=== PATIENT | female | born 1960 | race Caucasian/White ===

== ENCOUNTER 2017-11-13 05:22 | Inpatient (IN) ==
[2017-11-13 05:57] VITALS: BMI 34.0
[2017-11-13] MEDS ORDERED: LIDOCAINE 1% (10mg/ml) 2mL INJ PF SDV ID ONE (06:00)
[2017-11-13] MEDS ORDERED: FAMOTIDINE PB 20 MG/50 ML BAG IV ONE (06:00)
[2017-11-13] MEDS ORDERED: TRANEXAMIC ACID 1,000 MG in NS 100 ML IV ONE ×2 (06:00→07:00)
[2017-11-13] MEDS ORDERED: DEXAMETHASONE 4 MG/ML INJECTION IVP ONE (06:00)
[2017-11-13] MEDS ORDERED: METOCLOPRAMIDE 10mg/2ml INJECTION IVP ONE (06:00)
[2017-11-13] MEDS ORDERED: ONDANSETRON 4 MG/2 ML INJECTION IVP ONE (06:00)
[2017-11-13] MEDS ORDERED: ACETAMINOPHEN 500 MG TABLET PO ONE (06:00)
[2017-11-13] MEDS ORDERED: VANCOMYCIN 1,000 MG INJECTION ONE (06:23)
[2017-11-13] MEDS ORDERED: CEFAZOLIN 1 G INJECTION IVP ONE (06:29)
[2017-11-13] MEDS: LR 1,000 ML IV SCH ×2 (06:40→08:18)
--- NOTE | 2017-11-13 06:47 | Anesthesia Preoperative Report ---
Anesthesia Preoperative Record - Date and Time Date: 11/13/17 Preoperative Diagnosis: Rt TKA M17.11 NPO Since Date: 11/12/17 NPO Since Time: 22:00 Allergies/Adverse Reactions: Allergies Allergy/AdvReac Type Severity Reaction Status Date / Time No Known Allergies Allergy Verified 11/13/17 05:57 - Vital Signs Vital Signs: Temperature 98.3 F 11/13/17 05:56 Pulse Rate 81 11/13/17 06:06 Respiratory Rate 14 11/13/17 05:56 Blood Pressure 137/82 11/13/17 05:56 Pulse Oximetry 96 11/13/17 05:56 Height and Weight: Height 1.7 m Weight 98.6 kg Body Mass Index 34.0 - Medications Inpatient Medications: Current Medications Cefazolin Sodium (Kefzol) 2 g IVP PREOP ONE Stop: 11/13/17 06:30 Epinephrine HCl 0.25 mg/Bupivacaine HCl 30 ml/Morphine Sulfate 15 mg/Ketorolac Tromethamine 60 mg/Sodium Chloride 65.25 mls @ 0 mls/hr OPSITE INTRAOP ONE; Per Protocol PRN Reason: Protocol Stop: 11/13/17 08:01 Tranexamic Acid 1,000 mg/ (Sodium Chloride) 110 mls @ 660 mls/hr IV INTRAOP ONE Stop: 11/13/17 07:09 Lactated Ringer's (Lactated Ringers) 1,000 mls @ 50 mls/hr IV .Q20H VALENTINE Isopropyl Alcohol (Nozin Nasal Swab) 1 each FRANKIE PREOP ONE Stop: 11/13/17 11:47 Last Admin: 11/13/17 06:36 Dose: 1 each Sodium Chloride (Iv Flush) 10 - 80 ml IV PRN PRN PRN Reason: [place] Home Medications: Home Medications Medication Instructions Recorded Confirmed Type Aspirin/Acetaminophen/Caffeine 1 - 2 tab PO DAILY PRN 09/11/17 11/13/17 History [Excedrin Migraine Caplet] Naproxen [Aleve] 220 mg PO DAILY PRN 09/11/17 09/11/17 History Multivitamin [One Daily] 1 each PO DAILY 11/06/17 11/13/17 History Cook-3/Dha/Epa/Fish Oil [Fish Oil 2 each PO DAILY 11/13/17 11/13/17 History 1,000 mg Softgel] Is Patient on Beta Brandi?: No - Medical History Respiratory: Reports: Other (flu 3 weeks ago. No fever since 11/03/17) DENIES: Sleep Apnea Gastrointestional: Reports: Gastroesophageal Reflux Disease (OCC; USES TUMS OR PRILOSEC), Morbid Obesity Other History: Reports: Anesthesia Reactions (MIGRAINE AND NAUSEA) - Surgical History Musculoskeletal Surgery/Tx: Reports: Knee Arthroscopy (right) Reproductive Surgery/Treatment: Reports: Hysterectomy (abdominal) Anesthesia Reactions: Nausea and Vomiting Hx Family Anesthesia Reaction: No History of Motion Sickness: No - Social History Smoking Status: Never smoker Hx Chewing Tobacco Use: No Second Hand Exposure: No Substance Use Type: does not use Alcohol Intake: current Alcohol Intake Frequency: holidays/special occasions only - Pertinent Findings EKG: Sinus Rhythm - Physical Exam Respiratory Exam: Present: lungs clear, bilateral breath sounds equal Cardiovascular Exam: Present: regular rate and rhythm - Airway Assessment Mallampati Score: II TMD: 3 Fingerbreadths Neck Extension: good Overall Assessment: no airway concerns - ASA ASA Score: 2 - Plan Anesthesia: General Inhalation Gases, Neuroaxial Regional/Trunk Block: Spinal Peripheral Nerve Block: Saphenous-Right - Discussion Discussion: Discussed risks/options/alternatives of anesthesia and questions answered. Patient consents. Nursing pain assessment noted. Present for Discussion: family member Attestation Statement: Prior to the delivery of any anesthetic medication, I examined the patient, developed the plan, obtained the patient's consent and discussed the risk and benefits of the procedure with the patient/guardian. - Additional Information Seen by Anesthesia: Yes
[2017-11-13] MEDS ORDERED: MIDAZOLAM 2mg/2ml INJECTION ONE (07:01)
[2017-11-13] MEDS ORDERED: FentaNYL 100 MCG/2 ML INJECTION ONE (07:01)
[2017-11-13] MEDS ORDERED: PROPOFOL 500 MG/50 ML VIAL ONE (07:02)
[2017-11-13] MEDS ORDERED: ROPIVACAINE 0.5% (5mg/ml) 30ml INJ ONE (07:29)
[2017-11-13] MEDS ORDERED: SALINE FLUSH 10ml SYRINGE ONE (07:29)
[2017-11-13] MEDS ORDERED: PHENYLEPHRINE INJ 10 MG/ML VIAL IV ONE (07:29)
[2017-11-13] MEDS ORDERED: MORPHINE SULFATE 10 MG/ML VIAL IVP PRN (07:37)
[2017-11-13] MEDS ORDERED: ONDANSETRON 4 MG/2 ML INJECTION IVP PRN ×2 (07:37→09:31)
[2017-11-13] MEDS ORDERED: VANCOMYCIN 1,000 MG INJECTION IAR ONE (07:39)
[2017-11-13] MEDS ORDERED: EPINEPHrine PF 0.25 MG, BUPIVACAINE 0.25% PF 30 ML, MORPHINE SULFATE 15 MG, KETOROLAC I... OPSITE ONE (08:00)
[2017-11-13] MEDS ORDERED: PROPOFOL 20 ML ONE (08:19)
--- NOTE | 2017-11-13 08:37 | Operative Note ---
- Procedure Preoperative Diagnosis: Right knee primary degenerative joint disease Postoperative Diagnosis: Same as preoperative diagnosis. Surgeon: Jordan Siddiqui MD Setter Cold Rolling Machine: Maurilio Graham Complications: None. Anesthesia: Spinal. Estimated Blood Loss: See Anesthesia Record. Fluids: Please see Anesthesia Record. Description of Procedure: Mrs. Rivera and her right knee were identified and marked in the preoperative holding area. She was brought back to the operating suite. Spinal anesthetic was administered and she was placed supine on the operating table. The right lower extremity was prepped and draped in my normal sterile fashion. Timeout was performed. The [employer] robotic arm was used during the surgery. She had a fixed varus deformity with a 5 flexion contracture. A standard anterior midline incision followed by medial parapatellar arthrotomy was performed. Anterior fat pad and meniscus were removed. The patella was everted and a patellar osteotomy was performed leaving 13 mm of bone. Tibial and femoral arrays and checkpoints were placed both within the original incision. The bone was then registered with the [employer] robot. Osteophytes were removed and gaps were captured both 90 and 0 with correction. [employer] robotic software was utilized to obtain 18 mm gaps throughout. The [employer] robotic arm was then used to assist with the bone cuts. Posterior osteophytes and remaining meniscus were removed. Trial components were placed. We used a 4 femur and a 3 tibia with a 9 mm spacer and a 29 patella. She was tight both in flexion and extension so we took 1 more millimeter off of the tibial cut. With this in a partial release of the PCL she tracked well and was well balanced throughout range of motion. There is 2 mm of play both medially and laterally at 90 flexion. The tibia was stamped at the proper rotation. Trial components fit well and bone quality was adequate so we proceeded with press-fit components. Components were press-fit into place. A final spacer was also placed. The knee was ranged one more time to ensure good stability, balance and patellar tracking. 1 g of vancomycin powder was then placed into the knee joint. The capsulotomy was then closed with #1 Vicryl. I then left my virtual assistant to close the subcutaneous tissue with 2-0 Vicryl. Running 4-0 Monocryl will be used in the subcuticular layer. Dermabond will be used on the skin followed by sterile dressing. After drapes are removed patient will be taken to recovery room under the care of anesthesia.
--- NOTE | 2017-11-13 09:11 | Anesthesia Procedure Note ---
Peripheral Nerve Blockade - Procedure Physician: Eric Siddiqui MD Date: 11/13/17 Discussion: Discussed risks/options/alternatives of anesthesia and questions answered. Patient consents. Nursing pain assessment noted. Block Start: 09:02 Block Stop: 09:06 Blocked Employed: Adductor Canal, Single Injection Indication: Post-Operative Pain Position: Supine Patient: Consent, Risks/Benefits Discussed, Informed, Post Block Act. Discussed IV Sedation: No (post op) Initial Vital Signs: Temperature 98.3 F 11/13/17 05:56 Temperature Source Oral 11/13/17 05:56 Pulse Rate 81 11/13/17 05:56 Respiratory Rate 14 11/13/17 05:56 Blood Pressure 137/82 11/13/17 05:56 Blood Pressure Mean 100 11/13/17 05:56 Blood Pressure Position Sitting 11/13/17 05:56 Pulse Oximetry 96 11/13/17 05:56 Oxygen Delivery Method 11/13/17 05:56 Post Vital Signs: Temperature 98.3 F 11/13/17 05:56 Pulse Rate 81 11/13/17 06:06 Respiratory Rate 14 11/13/17 05:56 Blood Pressure 137/82 11/13/17 05:56 Pulse Oximetry 96 11/13/17 05:56 Ultrasound Used?: Yes - Nerve Simulator Needle Depth: 4 Muscle Response: No Paresthesia/Pain: None - Injectate Ropivacaine (%): 0.5 Ropivacaine (mL): 15 Was Epi 1:200,000 Used?: No Injection: Injection made incrementally with constant monitoring and aspiration every 5 ml
--- NOTE | 2017-11-13 09:30 | XRay Report ---
Indication: postoperative image PROCEDURE: XR knee RT 2V: Encounter: Initial Comparison: September 10, 2017 Findings: Postoperative changes of right total knee replacement are seen. There is expected postoperative subcutaneous gas. No evidence of hardware failure or acute fracture. No retained radiopaque surgical instruments or sponges. Overlying material causing artifact. Impression: New right total knee prosthesis without evidence of immediate complication. .
[2017-11-13] MEDS ORDERED: NOZIN NASAL SWAB NAS ONE ×2 (09:31→11:46)
[2017-11-13] MEDS ORDERED: NAPROXEN 220 MG TABLET PO PRN (09:31)
[2017-11-13] MEDS ORDERED: LORazepam 1 MG TABLET PO PRN (09:31)
[2017-11-13] MEDS ORDERED: DiphenhydrAMINE 50 MG/ML INJECTION IVP PRN (09:31)
[2017-11-13] MEDS ORDERED: DiphenhydrAMINE 25 MG CAPSULE PO PRN (09:31)
--- NOTE | 2017-11-13 09:33 | Anesthesia Postoperative Note ---
- Date and Time Date: 11/13/17 Time: 09:30 - Status Patient Participated in Evaluation: Patient Participated in Person Vital Signs: Temperature 97.5 F 11/13/17 09:28 Pulse Rate 72 11/13/17 09:28 Respiratory Rate 16 11/13/17 09:28 Blood Pressure 121/61 11/13/17 09:28 Pulse Oximetry 96 11/13/17 09:28 Respiratory Function: Airway Patent, Regular Respirations Cardiovascular Function: Regular Pulse Mental Status: Alert and Oriented Pain Intensity: 0 Hydration: IV Infusing Complications During Recover: None Apparent Post Anesthesia Care Notes: moves lower extremeties - Follow-Up Instructions Instructions: Per Surgeon
[2017-11-13] MEDS: NS 1,000 ML IV SCH ×2 (09:40→23:58)
[2017-11-13] MEDS: ACETAMINOPHEN 325 MG TABLET PO SCH ×4 (10:15→20:55)
[2017-11-13] MEDS: POLYETHYL GLYCOL 3350 17gm PACKET PO SCH (10:16)
[2017-11-13] MEDS: DOCUSATE SODIUM 100 MG CAPSULE PO SCH ×2 (10:16→20:55)
[2017-11-13] MEDS ORDERED: SALINE FLUSH 10ml SYRINGE IV PRN (11:46)
[2017-11-13] MEDS: NOZIN NASAL SWAB NAS SCH ×3 (14:08→21:51)
[2017-11-13] MEDS: Oxycodone *IR* 5 MG TABLET PO PRN ×3 (14:29→22:32)
[2017-11-13] MEDS: DEXAMETHASONE 20 MG/5 ML INJECTION IVP SCH ×2 (15:15→22:31)
[2017-11-13] MEDS: CEFAZOLIN 2 G in NS 100 ML IV SCH ×2 (15:22→22:31)
[2017-11-13] MEDS: ASPIRIN *EC* 81 MG TABLET PO SCH (20:55)
[2017-11-13] MEDS ORDERED: SENNOSIDES 8.6 MG TABLET PO SCH (21:00)
[2017-11-14] MEDS: NOZIN NASAL SWAB NAS SCH ×2 (05:33→13:40)
[2017-11-14] MEDS ORDERED: SENNOSIDES 8.6 MG TABLET PO PRN (07:15)
--- NOTE | 2017-11-14 08:38 | Orthopedic Progress Note ---
Date: Date: 11/14/17 Time: 835 Subjective/Severity of Illness: Doing very well. Pain is a 1-2 this AM. No CP, cough or SOA. She has been up with good tolerance. Expects discharge today. Orthopedic Objective PO Vital signs: Temperature 98.3 F 11/14/17 07:42 Pulse Rate 78 11/14/17 07:42 Respiratory Rate 16 11/14/17 07:42 Blood Pressure 123/65 11/14/17 07:42 Pulse Oximetry 97 11/14/17 07:42 Height and Weight: Height 5 ft 7 in Weight 227 lb 4.745 oz Body Mass Index 34.0 - Constitutional General Appearance: Present: alert, cooperative, no acute distress - Respiratory Exam Present: non-labored - Extremities Exam Extremities: Present: pulses intact. Absent: calf tenderness - Surgical Site Incision: Mepilex dressing intact, no drainage - Integumentary Exam Present: pink, warm, dry - Neurological Exam Present: no deficits - Psychiatric Exam Present: alert, normal affect - Labs Result Diagrams: 11/14/17 04:13 11/14/17 04:13 Abnormal lab results 11/14/17 Range/Units 04:13 Chloride 108 H (98-107) MEQ/L Creatinine 0.6 L (0.7-1.2) MG/DL Glucose 137 H (65-110) MG/DL H & H 11/14/17 Range/Units 04:13 Hgb 12.2 (12-16) GM/DL Hct 37.9 (36-46) % Orthopedic Assessment and Plan (1) Primary osteoarthritis of right knee Status: Acute Assessment and Plan: Current anti-coagulation protocol for VTE prophylaxis. SCD's. PT/OT services to improve independent function. Discharge Planning per Case Management. - Anticoagulation Therapy Anticoagulation: ASA 81 mg PO BID x6 weeks Hospital Course Summary Disclaimer: The visit summary below is not to be considered part of the above Progress Note.
[2017-11-14] MEDS: Oxycodone *IR* 5 MG TABLET PO PRN ×3 (08:59→13:40)
[2017-11-14] MEDS: POLYETHYL GLYCOL 3350 17gm PACKET PO SCH (09:00)
[2017-11-14] MEDS: ASPIRIN *EC* 81 MG TABLET PO SCH (09:00)
[2017-11-14] MEDS: ACETAMINOPHEN 325 MG TABLET PO SCH ×2 (09:00→13:38)
[2017-11-14] MEDS ORDERED: OMEGA-3 ACID ESTERS 1 GM CAPSULE PO SCH ×2 (09:00→09:04)
[2017-11-14] MEDS: DOCUSATE SODIUM 100 MG CAPSULE PO SCH (09:00)
[2017-11-14 12:08] VITALS: BP 124/64; PULSE 77; RESP 18; TEMP 97.2; O2SAT 98
--- NOTE | 2017-11-14 14:25 | Discharge Summary ---
Orthopedic Discharge Info Date of admission: 11/13/17 05:22 Anticipated date of discharge: 11/14/17 Primary care physician: Linda Dumont APRN Attending Physician: Eric Siddiqui MD Consults: 11/13/17 05:37 Consult to Anesthesiology [CONS] Routine Reason For Exam: Preoperative Assessment 11/13/17 09:31 Case Management Consult [CONS] Routine Reason For Exam: Discharge Planning DME-Walker [CONS] Routine Height: 5 ft 7 in Weight: 217 lb 6.012 oz Total Joint Outpatient Therapy [CONS] Routine Comment: Remove dressing in 2 weeks - Discharge Diagnosis (1) Primary osteoarthritis of right knee Status: Acute - Laboratory Result Diagrams: 11/14/17 04:13 11/14/17 04:13 Laboratory: Abnormal lab results 11/14/17 Range/Units 04:13 Chloride 108 H (98-107) MEQ/L Creatinine 0.6 L (0.7-1.2) MG/DL Glucose 137 H (65-110) MG/DL H & H 11/14/17 Range/Units 04:13 Hgb 12.2 (12-16) GM/DL Hct 37.9 (36-46) % Orthopedic Discharge HPI - HPI Comments This patient was admitted for elective surgical tx of end stage degenerative joint disease that failed to respond to conservative treatment. Further details of this is found in the admission H&P. Orthopedic Hospital Course Hospital course: 11/14/17 14:22 After appropriate preoperative clearance and signing of operative consent, the patient was given IV antibiotics, according to orthopedic protocol. The patient was taken to the operating room and underwent elective total knee arthroplasty. Following surgery, antibiotics were discontinued less than 24 hours according to joint protocol. Aspirin was initiated and SCDs added for DVT prevention. The dressing was clean, dry, and intact. Pain control was obtained via multimodal approach. Bowel motivation addressed with scheduled and PRN medications. Early mobilization was initiated through PT services. Discharge arrangements made by a collaborative effort between the patient and Case Management. Follow-up is scheduled in 2-3 weeks. Discharge instructions given by orthopedic providers and nursing staff at discharge. Discharge condition was good. Care extended to > 2 midnight stays?: No Discharge Plan - Med Rec/Dispo Referrals/Follow Up: Eric Siddiqui MD [Physician] - 12/08/17 1:15 pm [place] Instructions: [facility] Postop Instructions Additional Instructions: PHYSICAL THERAPY AT [facility] ON NOVEMBER 17. P#[phone]. Prescriptions: New Acetaminophen [Tylenol] 650 mg PO QID tablet Aspirin *EC* [Ecotrin] 81 mg PO BID tablet Docusate Sodium [Colace] 100 mg PO BID capsule Milk of Magnesia [Mom] 30 ml PO DAILY udc Naproxen [Aleve] 440 mg PO BID PRN tablet PRN Reason: Pain Oxycodone *IR* [Roxicodone *Ir*] 5 - 15 mg PO Q3H PRN #60 tab PRN Reason: Breakthrough Pain PEG 3350 17gm PACKET [Miralax] 17 gm PO DAILY packet Continue Aspirin/Acetaminophen/Caffeine [Excedrin Migraine Caplet] 1 - 2 tab PO DAILY PRN PRN Reason: Migraine Headache Multivitamin [One Daily] 1 each PO DAILY [place]-3/Dha/Epa/Fish Oil [Fish Oil 1,000 mg Softgel] 2 each PO DAILY Discontinued Naproxen [Aleve] 220 mg PO DAILY PRN PRN Reason: Pain - Disposition 01 Discharged Home, Self-Care - Dismissal Complete Discharge Instructions are:: Complete
[2017-11-15] MEDS ORDERED: BISACODYL 10 MG SUPPOSITORY RECTALLY SCH (20:00)
== END 2017-11-14 15:25 | disposition home or self-care (01) | DRG 470 ==
LOC: SRG 05:22 → EDSTATUS 07:30 → SRG 09:31
PROVIDERS: ADMIT Orthopaedic Surgery; ATTEND Orthopaedic Surgery